=== PATIENT | female | born 1990 | race Two or more races ===

== ENCOUNTER 2019-01-17 13:23 | Emergency (ER) | payer MEDICAID ==
[~2019-01-17] VITALS: Ht 157.5 cm; Wt 56.7 kg
[2019-01-17 13:36] VITALS: BP 93/67
[2019-01-17 14:01] LABS: Urine Bacteria NONE SEEN /hpf (None Seen); Urine Blood 2+ /uL (Negative); Urine Budding Yeast FEW /hpf (None Seen); Urine Specific Gravity 1.015 (1.001-1.035); Urine WBC 186 /hpf (0 - 5); Urine WBC Clumps PRESENT /hpf (None Seen)
[2019-01-17] MEDS ORDERED: PHENAZOPYRIDINE HCL 100 MG TAB PO ONE (16:15)
[2019-01-17] MEDS ORDERED: cefTRIAXone SOD 1,000 MG VL IM ONE (16:15)
== END 2019-01-17 16:41 | disposition home or self-care (01) ==
LOC: ER 13:23
DX: N39.0 Urinary tract infection, site not specified (principal)
CPT/HCPCS: 81001; 81025; 96372; 99283; J0696

== ENCOUNTER 2019-09-20 12:18 | Emergency (ER) | payer MEDICAID ==
[~2019-09-20] VITALS: Ht 157.5 cm; Wt 55.3 kg
[2019-09-20 13:23] VITALS: BP 124/72
[2019-09-20] MEDS ORDERED: IBUPROFEN 800 MG TAB PO ONE (14:30)
== END 2019-09-20 14:41 | disposition home or self-care (01) ==
LOC: ER 12:18
DX: S02.602A Fracture of unspecified part of body of left mandible, initial encounter for closed fracture (principal); W18.00XA Striking against unspecified object with subsequent fall, initial encounter; Y93.01 Activity, walking, marching and hiking; Y92.89 Other specified places as the place of occurrence of the external cause; Y99.8 Other external cause status
CPT/HCPCS: 70110

== ENCOUNTER 2022-01-08 06:19 | Emergency (ER) | payer MEDICAID ==
[~2022-01-08] VITALS: Ht 157.5 cm; Wt 64.4 kg
[2022-01-08 06:45] LABS: Basophils # (auto) 0 10 ^3/uL (0-0.2); Basophils % (auto) 0.3 % (0.0-2.0); Eosinophils # (auto) 0.5 10 ^3/uL (0-0.8); Eosinophils % (auto) 9.1 % (0.0-7.0); Hematocrit 37.5 % (36.0-46.0); Hemoglobin 13.3 g/dL (12.2-16.2); Mean Corpuscular Hemoglobin 32.6 pg (28.0-32.0); Mean Corpuscular Hgb Conc. 35.4 g/dL (32.0-36.0); Mean Corpuscular Volume 92.3 fL (80.0-100.0); Monocytes # (auto) 0.4 10 ^3/uL (0-1.3); Monocytes % (auto) 7.2 % (0.0-12.0); Neutrophils # (auto) 3.5 10 ^3/uL (1.6-8.6); Neutrophils % (auto) 64.4 % (37.0-80.0); Nucleated Red Blood Cells % 0.1 %; Red Blood Cells 4.07 10^6/uL (4.0-5.20); Red Cell Distribution Width 13.2 % (11.8-14.3); White Blood Cell 5.5 10^3/uL (4.4-10.8)
[2022-01-08 07:03] LABS: BUN/Creatinine Ratio 13.2
[2022-01-08 07:06] LABS: Bilirubin, Total 0.2 mg/dL (0.2-1.0); Total Protein 7.8 g/dL (6.4-8.2)
[2022-01-08] MEDS ORDERED: KETOROLAC TROMETH 30 MG/ML 1ML VIAL IV ONE (07:30)
[2022-01-08] MEDS ORDERED: SODIUM CHLORIDE 0.9% 1,000 ML IV ONE (07:30)
[2022-01-08] MEDS ORDERED: SODIUM CHLORIDE 0.9% 1,000 ML IVB ONE (07:30)
[2022-01-08 07:55] LABS: Urine Bacteria NONE SEEN /hpf (None Seen); Urine Blood 2+ /uL (Negative); Urine Specific Gravity 1.018 (1.001-1.035); Urine WBC 1 /hpf (0 - 5)
[2022-01-08 08:04] LABS: Beta HCG, Quantitative < 1 mlU/mL (1-3)
[2022-01-08 09:47] VITALS: BP 115/70
[2022-01-08] MEDS ORDERED: NAP500T GT (09:57)
[2022-01-08] MEDS ORDERED: NAP500T PO (10:19)
== END 2022-01-08 10:22 | disposition home or self-care (01) ==
LOC: ER 06:19
DX: R07.89 Other chest pain (principal)
CPT/HCPCS: 36415; 71046; 80053; 81001; 81025; 83735; 84443; 84484; 84702; 85025; 85379; 93005; 96361; 96374; 99285; J1885; J7030